=== PATIENT | male | born 1970 | race African-American/Black ===

== ENCOUNTER 2017-06-17 10:25 | Day surgery (SDC) | payer OTHER ==
[2017-06-14 16:17] VITALS: BMI 28.2
--- NOTE | 2017-06-17 09:40 | HP ---
History & Physical Update - History History: No Change - Physical Physical: No Change - Assessment Assessment: No Change - Plan Plan: No Change
[2017-06-17] MEDS ORDERED: BUPIVACAINE HCL/PF 0.5% (5MG/ML) 10 ML VIAL ONE (11:27)
[2017-06-17] MEDS ORDERED: ROCURONIUM BROMIDE 50 MG/5 ML VIAL ONE (12:03)
[2017-06-17] MEDS ORDERED: PROPOFOL 20 ML ONE ×3 (12:03→13:45)
[2017-06-17] MEDS ORDERED: MIDAZOLAM HCL 2 MG/2 ML SINGLE DOSE VIAL ONE (12:03)
[2017-06-17] MEDS ORDERED: ceFAZolin SODIUM 1 GM VIAL ONE (12:03)
[2017-06-17] MEDS ORDERED: ceFAZolin SODIUM 1 GM VIAL IVPB ONE (12:20)
[2017-06-17] MEDS ORDERED: BUPIVACAINE HCL/PF 0.5% (5MG/ML) 10 ML VIAL IJ ONE ×2 (12:34→13:20)
[2017-06-17] MEDS ORDERED: BACITRACIN 50,000 UNITS VIAL NR ONE (12:35)
[2017-06-17] MEDS ORDERED: IBUPROFEN 800 MG/8 ML IJ IVPB PRN (12:42)
[2017-06-17] MEDS ORDERED: oxyCODONE HCL 5 MG TABLET PO PRN (12:42)
[2017-06-17] MEDS ORDERED: LACTATED RINGERS SOLUTION 1,000 ML IV SCH (12:45)
[2017-06-17] MEDS ORDERED: GLYCOPYRROLATE 0.2 MG/1 ML VIAL ONE ×3 (12:45→13:13)
[2017-06-17] MEDS ORDERED: NEOSTIGMINE METHYLSULFATE 0.5 MG/ML - 10 ML MDV ONE (13:13)
[2017-06-17] MEDS ORDERED: SUCCINYLCHOLINE CHLORIDE 200 MG/10 ML VIAL ONE (13:45)
--- NOTE | 2017-06-17 14:02 | OP ---
Operative Note - Note: Operative Date: 06/17/17 Pre-Operative Diagnosis: Incarcerated ventral / umbilical hernia. Operation: Repair of incarcerated ventral hernia with mesh. Findings: Large 4cm. defect above and below the umbilicus, in the midline of the abdomen. Post-Operative Diagnosis: Same as Pre-op Surgeon: Sima Ralph Jewel Gauger: Gissel Diaz Anesthesiologist/DIRECTOR OF GRADUATE ADMISSIONS: Aminta Trujillo Anesthesia: General Specimens Removed: Hernial sac. Estimated Blood Loss (mls): 10 Operative Report Dictated: Yes
[2017-06-17 16:08] VITALS: TEMP 98.6
[2017-06-17] MEDS ORDERED: oxyCODONE HCL 5 MG TABLET ONE ×2 (16:09→16:54)
--- NOTE | 2017-06-17 17:09 | SURG ---
Surgery Food Processor Note Food Processor: Gissel Diaz PA-C Date of Service: 06/17/17 Diagnosis: Incarcerated ventral / umbilical hernia. Procedure: Repair of incarcerated ventral hernia with mesh. I was present for the entirety of the operative procedure. For further detail, please refer to operative report. Visit type - Case Type Case Type: Scheduled Admission - Emergency Emergency Visit: No - New patient This patient is new to me today: Yes Date on this admission: 06/17/17 - Critical Care Critical Care patient: No
[2017-06-17 17:54] VITALS: BP 144/95; PULSE 63
--- NOTE | 2017-06-20 09:31 | OP ---
DATE OF OPERATION: 06/17/2017 PREOPERATIVE DIAGNOSIS: Incarcerated ventral/umbilical hernia. POSTOPERATIVE DIAGNOSIS: Incarcerated ventral hernia. OPERATIVE PROCEDURE: Repair of incarcerated ventral hernia with mesh. SURGEON: Damion Ralph MD ANESTHESIA: General. OPERATIVE DESCRIPTION: This 47-year-old man had a large lump in the mid-abdomen , which was about 4-5 cm in diameter. Patient was brought in for repair of this ventral hernia. This was painful, bulging, and not reducible. Consent was obtained. Risks, benefits, and complications were discussed with the patient. Patient brought to the operating room. General anesthesia was administered. He was given a gram of Ancef. The abdomen was painted and draped. Timeout was called. Incision was made 2-3 fingers below the umbilicus in semicircular fashion from one side to the other. This was deepened through the skin and subcutaneous tissue all the way to the anterior rectus sheath. Superior skin flaps were then placed between the anterior rectus sheath all the way to about 3-4 cm above the umbilicus. There was a large central defect measuring allowing 4 fingers or 4 cm in diameter. The skin flap was raised over the sac. The sac was then defined, and the areas of the defect were outlined. The sac was opened. This was carried down to the abdominal cavity. It was fairly wide. This was suture ligated with 3-0 Vicryl sutures, and at the level of the abdominal wall, and the sac and fat beyond (distal) the Vicryl suture was divided and sent to Pathology. The peritoneum was then from the abdominal cavity circumferentially for 2-3 cm beyond the edge of the defect. A large 6.4-cm diameter Ventralex mesh was then inserted into the defect and anchored below the peritoneum and the abdominal wall with four 2-0 Prolene sutures. The suture was passed through the abdominal wall, and then the passed through and through the mesh and again was brought out from the anterior abdominal wall. Four such sutures were obtained, one on either side, one above and below the defect. Once the mesh was placed adequately as an inlay fashion, the sutures on either side were tied. The superior and inferior ribbon was cut to about 2-3 cm from the abdominal wall with 2-0 Prolene suture holding the superior and inferior aspect of the mesh. Then, brought through the superior-inferior ribbon above the anterior rectus sheath, and then, the knot was fastened, thus sandwiching the abdominal wall between the mesh underneath and the ribbon above the abdominal wall. The defect was adequately covered. The peritoneum anchored to the umbilicus was then brought down and anchored to the anterior abdominal wall with interrupted 3-0 Vicryl sutures. Hemostasis was satisfactory. The wound was irrigated. The defect was adequately repaired. The subcutaneous fat was approximated by interrupted 3-0 Vicryl sutures, the dermal layer was approximated by interrupted 3-0 Vicryl sutures and the skin was approximated by continuous 4- 0 Monocryl sutures in running subcuticular fashion. Sponge count and instrument count was correct. Pressure dressing was applied and an abdominal binder placed. Patient tolerated the procedure well, was extubated, and sent to the recovery room in satisfactory and stable condition. Estimated blood loss was 10 mL. Scout [id number] MTDD
--- NOTE | 2017-06-22 17:07 | PATH ---
Surgical Pathology Report Patient Name: KASEY PETE [facility]. Rec. #: [id number] /Age/Gender: 1970 (Age: 47) / M Account: [id number] Location: [facility] SUR[facility]ICAL Taken: 06/17/2017 Received: 06/20/2017 Reported: 06/22/2017 Physicians: Damion Ralph M.D. Specimen(s) Received HERNIA SAC Clinical History Incarcerated umbilical hernia Final Diagnosis HERNIA SAC, EXCISION: FIBROADIPOSE AND FIBROMEMBRANOUS TISSUE CONSISTENT WITH HERNIA SAC. Electronically Signed Marilee Marte M.D. Gross Description Received in formalin labeled "hernia sac," is a 3.0 x 2.4 x 1.4 cm stone low, irregular portion of fibromembranous tissue with attached yellow, lobulated adipose tissue, consistent with a hernia sac. Solar [employer]olta[employer] Installer sections are submitted in one cassette. /06/20/2017 saudi/06/20/2017
== END 2017-06-17 18:10 | disposition home or self-care (01) ==
LOC: JASU-SURG 10:25
PROVIDERS: ATTEND Specialist
PROC: 0WUF0JZ Supplement Abdominal Wall with Synthetic Substitute, Open Approach (ICD-10-PCS; principal; 2017-06-17 12:00)
DX: K43.6 Other and unspecified ventral hernia with obstruction, without gangrene (principal)
CPT/HCPCS: 88302-TC; 94760

== ENCOUNTER 2018-06-27 08:52 | Emergency (ER) | payer OTHER ==
[2018-06-27] MEDS ORDERED: IBUPROFEN 400 MG TABLET (FP) PO ONE ×2 (09:07→09:11)
--- NOTE | 2018-06-27 09:10 | PDOC ---
History of Present Illness - General Chief Complaint: Sore Throat Stated Complaint: SORE THROAT Time Seen by Provider: 06/27/18 09:02 History Source: Patient Exam Limitations: No Limitations - History of Present Illness Initial Comments: 06/27/18 09:08 48 yr male with c/o sore throat for 4 days no fever no cough. no pmhx, pt does not smoke. Past History - Past Medical History Allergies/Adverse Reactions: Allergies Allergy/AdvReac Type Severity Reaction Status Date / Time No Known Drug Allergies Allergy Verified 06/27/18 08:58 Home Medications: Ambulatory Orders NK [No Known Home Medication] 06/27/18 Anemia: No Asthma: No Cancer: No Cardiac Disorders: No CVA: No COPD: No CHF: No Dementia: No Diabetes: No GI Disorders: No Disorders: No HTN: No Hypercholesterolemia: No Liver Disease: No Seizures: No Thyroid Disease: No - Suicide/Smoking/Psychosocial Hx Smoking History: Never smoked Hx Alcohol Use: No Drug/Substance Use Hx: No Substance Use Type: None Hx Substance Use Treatment: No Review of Systems - Review of Systems Able to Perform ROS?: Yes Is the patient limited Belarusian proficient: No Constitutional: No: Symptoms Reported HEENTM: Yes: Symptoms Reported *Physical Exam - Vital Signs Last Vital Signs Temp Pulse Resp BP Pulse Ox 98.5 F 62 16 125/84 100 06/27/18 08:58 06/27/18 08:58 06/27/18 08:58 06/27/18 08:58 06/27/18 08:58 - Physical Exam General Appearance: Yes: Nourished, Appropriately Dressed HEENT: positive: EOMI, GALEN, TMs Normal, Pharynx Normal, Pharyngeal Erythema Neck: positive: Supple. negative: Lymphadenopathy (R), Lymphadenopathy (L) Respiratory/Chest: positive: Lungs Clear, Normal Breath Sounds Cardiovascular: positive: Regular Rhythm, Regular Rate Gastrointestinal/Abdominal: positive: Normal Bowel Sounds, Soft Musculoskeletal: positive: Normal Inspection Extremity: positive: Normal Capillary Refill, Normal Inspection, Normal Range of Motion Integumentary: positive: Normal Color, Dry, Warm Neurologic: positive: Fully Oriented, Alert, Normal Mood/Affect, Normal Response , Motor Strength 5/5 Medical Decision Making - Medical Decision Making 06/27/18 09:09 cc: sore throat for 4 days no fever no cough worse when eating and swallowing will check for strep motrin for pain *DC/Admit/Observation/Transfer Diagnosis at time of Disposition: Pharyngitis Qualifiers: Pharyngitis/tonsillitis etiology: unspecified etiology Qualified Code(s): J02.9 - Acute pharyngitis, unspecified - Discharge Dispostion Disposition: HOME Condition at time of disposition: Good - Referrals Referrals: Cisco Kemp MD [Primary Care Provider] - - Patient Instructions Printed Discharge Instructions: DI for Viral Pharyngitis Additional Instructions: gargle with warm salt water 4-5 times a day take ibuprofen (motrin, advil) over the counter 600-800mg every 6-8hrs for pain throat lozengers of your choice sold over the counter drink pleanty of fluids avoid spicy crunchy foods follow with your doctor as needed return if worse - Post Discharge Activity Forms/Work/School Notes: Back to Work
[2018-06-27 09:24] VITALS: BP 125/84; PULSE 62; TEMP 98.5; BMI 28.2
== END 2018-06-27 09:56 | disposition home or self-care (01) ==
LOC: JER 08:52
DX: J02.9 Acute pharyngitis, unspecified (principal)
CPT/HCPCS: 87070; 87430; 99281-25

== ENCOUNTER 2019-05-18 08:55 | Emergency (ER) | payer OTHER ==
[2019-05-18 09:15] VITALS: BP 122/77; PULSE 64; TEMP 97.9; BMI 28.8
[2019-05-18] MEDS ORDERED: KETOROLAC TROMETHAMINE 60 MG/2 ML VIAL IM ONE (09:50)
--- NOTE | 2019-05-18 09:51 | PDOC ---
History of Present Illness - General Chief Complaint: Pain, Acute Stated Complaint: LT SHOULDER PAIN Time Seen by Provider: 05/18/19 09:18 History Source: Patient Exam Limitations: No Limitations Past History - Travel Traveled outside of the country in the last 30 days: No Close contact w/someone who was outside of country & ill: No - Past Medical History Allergies/Adverse Reactions: Allergies Allergy/AdvReac Type Severity Reaction Status Date / Time No Known Drug Allergies Allergy Verified 05/18/19 09:06 Home Medications: Ambulatory Orders Ibuprofen 800 mg PO TID #30 tablet 05/18/19 Anemia: No Asthma: No Cancer: No Cardiac Disorders: No CVA: No COPD: No CHF: No Dementia: No Diabetes: No GI Disorders: No Disorders: No HTN: No Hypercholesterolemia: No Liver Disease: No Seizures: No Thyroid Disease: No - Suicide/Smoking/Psychosocial Hx Smoking History: Never smoked Hx Alcohol Use: No Drug/Substance Use Hx: No Substance Use Type: None Hx Substance Use Treatment: No Review of Systems - Review of Systems Able to Perform ROS?: Yes Comments:: 05/18/19 09:55 CONSTITUTIONAL: Absent: fever, chills, diaphoresis, generalized weakness, malaise, loss of appetite MUSCULOSKELETAL: Present: L shoulder pain Absent: myalgia, arthralgia, joint swelling SKIN: Absent: rash, itching, pallor NEUROLOGIC: Absent: headache, focal weakness or paresthesias, dizziness, unsteady gait, seizure, mental status changes, bladder or bowel incontinence PSYCHIATRIC: Absent: anxiety, depression, suicidal or homicidal ideation, hallucinations. Is the patient limited Algerian proficient: No *Physical Exam - Vital Signs Last Vital Signs Temp Pulse Resp BP Pulse Ox 97.9 F 64 16 122/77 99 05/18/19 09:00 05/18/19 09:00 05/18/19 09:00 05/18/19 09:00 05/18/19 09:00 - Physical Exam Comments: 05/18/19 09:56 GENERAL: The patient is awake, alert, and fully oriented, in no acute distress. HEAD: Normal with no signs of trauma. EYES: Pupils equal, round and reactive to light, extraocular movements intact, sclera anicteric, conjunctiva clear. EXTREMITIES: Full ROM of the L shoulder with pain. TTP with palpation of the long head biceps tendon. Normal range of motion, no edema. NEUROLOGICAL: Normal speech, normal gait. PSYCH: Normal mood, normal affect. SKIN: Warm, Dry, normal turgor, no rashes or lesions noted. Medical Decision Making - Medical Decision Making 05/18/19 10:35 The patient is a 49-year-old male past medical history who presents to the ER today with left shoulder pain. He states that the pain has been going on for one month which started after heavy lifting at the gym. He notes that he has been taking ibuprofen with some relief of symptoms however he bench pressed yesterday and his symptoms worsen. He states that his arm now feels weak. Denies fevers, chills and numbness and tingling to the affected extremity. Patient is right-hand dominant. A/P: Biceps tendinitis On exam tenderness to palpation of the long Biceps of the left arm. Negative drop arm test, empty can test, apprehension sign test X-rays negative for acute pathology or fractures Biceps tendinitis versus impingement syndrome NSAIDs given for treatment Patient up with primary care doctor and orthopedic referral given. Discharge home I discussed the physical exam findings, ancillary test results and final diagnoses with the patient. I answered all of the patient's questions. The patient was satisfied with the care received and felt comfortable with the discharge plan and treatment plan. The Patient agrees to follow up with the primary care physician/specialist within 24-72 hours. Return precautions were given. *DC/Admit/Observation/Transfer Diagnosis at time of Disposition: Left shoulder pain Qualifiers: Chronicity: acute Qualified Code(s): M25.512 - Pain in left shoulder - Discharge Dispostion Disposition: HOME Condition at time of disposition: Stable Decision to Admit order: No - Referrals Referrals: Cisco Kemp MD [Primary Care Provider] - Ronaldo Garcia DO [Staff Physician] - - Patient Instructions Printed Discharge Instructions: DI for Shoulder Pain Additional Instructions: You were evaluated for your shoulder pain today Your x-ray was negative for broken bones I suspect you have tendonitis. Do not lift anything heavier than a full laundry basket until your symptoms have improved Take Motrin 800mg every 8 hours for one week Follow up with your primary care doctor this week Return to the ER for any new worsening symptoms - Post Discharge Activity Forms/Work/School Notes: Back to Work
[2019-05-18] MEDS ORDERED: KETOROLAC TROMETHAMINE 60 MG/2 ML VIAL ONE (09:52)
== END 2019-05-18 10:42 | disposition home or self-care (01) ==
LOC: JERFT 08:55
PROC: 3E0233Z Introduction of Anti-inflammatory into Muscle, Percutaneous Approach (ICD-10-PCS; principal; 2019-05-18)
DX: M25.512 Pain in left shoulder (principal)
CPT/HCPCS: 73030-TC-LT-FY; 99281-25